=== PATIENT | male | born 1995 | race Caucasian/White ===

== ENCOUNTER 2019-04-18 02:11 | Emergency (ER) | payer OTHER ==
[~2019-04-18] VITALS: Ht 177.8 cm; Wt 63.6 kg
[2019-04-18] MEDS ORDERED: IBUPROFEN 800 MG TAB PO ONE (07:00)
[2019-04-18 07:22] VITALS: BP 127/69
--- NOTE | 2019-04-21 12:05 | REP ---
REASON: Shoulder pain. There are no priors. There examination was performed as a standard shoulder exam not an examination of the acromioclavicular joints. If an acromioclavicular joint injury is of clinical concern than an acromioclavicular joint examination should be obtained. Three views of the shoulder were performed. The acromioclavicular and glenohumeral relationships are within normal limits. There is no acute fracture or destructive osseous lesions. Electronically Signed by Freedom Pillai DO 04/21/2019 05:07 P
== END 2019-04-18 07:30 | disposition home or self-care (01) ==
LOC: M ED 02:11
DX: S43.51XA Sprain of right acromioclavicular joint, initial encounter (principal); W01.0XXA Fall on same level from slipping, tripping and stumbling without subsequent striking against object, initial encounter; Y92.830 Public park as the place of occurrence of the external cause; F17.210 Nicotine dependence, cigarettes, uncomplicated

== ENCOUNTER → 2019-11-28 | Outpatient (CLI) | payer SELFPAY ==
[~2019-11-28] MED LIST: GLUC500C37 PO; IBUP-1114 PO; LEVO500T3 PO
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
== END ==
LOC: M LRY 13:33
PROVIDERS: ATTEND Nurse Practitioner Family
DX: S60.453A Superficial foreign body of left middle finger, initial encounter (principal); T79.7XXA Traumatic subcutaneous emphysema, initial encounter; W34.00XA Accidental discharge from unspecified firearms or gun, initial encounter; Y92.9 Unspecified place or not applicable

== ENCOUNTER → 2019-11-29 | Day surgery (SDC) | payer OTHER, SELFPAY ==
[~2019-11-29] VITALS: Ht 177.8 cm; Wt 63.5 kg
[~2019-11-29] MED LIST changes: +ACETAMINOPHEN 1000MG 100ML IV BTL (OFIRMEV) (J0131 PER 10MG) As Ordered ONE; +KETOROLAC 60 MG/2 ML VIAL (J1885) As Ordered ONE; +LIDOCAINE 1% MDV 20ML VIAL As Ordered ONE; +LIDOCAINE 2% INJ 100 MG/5 ML SDV (FOR ANES.) As Ordered ONE; +LR 1,000 ML IV SCH; +MIDAZOLAM INJ 2 MG/2 ML VIAL (J2250) As Ordered ONE; +MORPHINE 2 MG/ML 1ML VIAL (J2270) IV ONE; +ONDANSETRON 4MG/2ML VIAL (J2405) As Ordered ONE; +ONDANSETRON 4MG/2ML VIAL (J2405) IV ONE; +ceFAZolin 2 GM/D5W 50 ML IV BAG (J0690 PER 500MG) As Ordered ONE; +ceFAZolin 2 GM/D5W 50 ML IV BAG (J0690 PER 500MG) IV ONE; +dexameTHASONE 4 MG/ML 1ML VIAL (J1100) As Ordered ONE; +fentaNYL 100 MCG/2 ML INJECTION (J3010) As Ordered ONE; +propofoL 500 MG/50 ML VIAL As Ordered ONE
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
[2019-11-29 08:28] LABS: BASO % 0.4 % (0.0-1.0); EOS # 0.1 10^3/uL (0.0-0.5); EOS % 2.1 % (0.0-3.0); HEMATOCRIT 47.8 % (42.0-52.0); HEMOGLOBIN 16.9 g/dl (13.5-17.5); LYMPH # 1.4 10^3/uL (1.5-5.0); LYMPH % 20.7 % (24.0-44.0); MEAN CORPUSCULAR HEMOGLOBIN 30.9 pg (27.0-33.0); MEAN CORPUSCULAR HGB CONC 35.4 g/dl (32.0-36.5); MEAN CORPUSCULAR VOLUME 87.4 fl (80.0-96.0); MONO # 0.8 10^3/uL (0.0-0.8); NEUTROPHILS # 4.4 10^3/uL (1.5-8.5); NEUTROPHILS % 64.5 % (36.0-66.0); PLATELET COUNT, AUTOMATED 185 10^3/uL (150-450); RED BLOOD COUNT 5.47 10^6/uL (4.30-6.10); WHITE BLOOD COUNT 6.8 10^3/uL (4.0-10.0)
[2019-11-29 08:40] LABS: BLOOD UREA NITROGEN 19 MG/DL (7-18); CALCIUM LEVEL 9.2 MG/DL (8.5-10.1); CARBON DIOXIDE LEVEL 27 MEQ/L (21-32); CHLORIDE LEVEL 109 MEQ/L (98-107); CREATININE FOR GFR 1.17 MG/DL (0.70-1.30); GLOMERULAR FILTRATION RATE > 60.0 (>60); GLUCOSE, FASTING 94 MG/DL (70-100); POTASSIUM SERUM 4.6 MEQ/L (3.5-5.1); SODIUM LEVEL 141 MEQ/L (136-145)
[2019-11-29 11:34] VITALS: BP 116/72
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
[2019-11-29 11:39] VITALS: BP 122/74
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
== END | disposition home or self-care (01) ==
LOC: M ED 06:33 → M SDC 06:34
PROVIDERS: ATTEND Orthopaedic Surgery
DX: S60.453A Superficial foreign body of left middle finger, initial encounter (principal); S62.653A Nondisplaced fracture of middle phalanx of left middle finger, initial encounter for closed fracture; W34.010A Accidental discharge of airgun, initial encounter; Y92.89 Other specified places as the place of occurrence of the external cause; F17.210 Nicotine dependence, cigarettes, uncomplicated
CPT/HCPCS: 20520; 73130; 73200; 80048; 85025; 88300; 96374; 96375; 99284; J0131; J0690; J1100; J1885; J2250; J2270; J2405; J3010

== ENCOUNTER 2020-02-24 20:04 | Emergency (ER) | payer OTHER ==
[~2020-02-24] VITALS: Ht 180.3 cm; Wt 66.7 kg
[~2020-02-24 20:04] MED LIST changes: -ACETAMINOPHEN 1000MG 100ML IV BTL (OFIRMEV) (J0131 PER 10MG) As Ordered ONE; -KETOROLAC 60 MG/2 ML VIAL (J1885) As Ordered ONE; -LIDOCAINE 1% MDV 20ML VIAL As Ordered ONE; -LIDOCAINE 2% INJ 100 MG/5 ML SDV (FOR ANES.) As Ordered ONE; -LR 1,000 ML IV SCH; -MIDAZOLAM INJ 2 MG/2 ML VIAL (J2250) As Ordered ONE; -MORPHINE 2 MG/ML 1ML VIAL (J2270) IV ONE; -ONDANSETRON 4MG/2ML VIAL (J2405) As Ordered ONE; -ONDANSETRON 4MG/2ML VIAL (J2405) IV ONE; -ceFAZolin 2 GM/D5W 50 ML IV BAG (J0690 PER 500MG) As Ordered ONE; -ceFAZolin 2 GM/D5W 50 ML IV BAG (J0690 PER 500MG) IV ONE; -dexameTHASONE 4 MG/ML 1ML VIAL (J1100) As Ordered ONE; -fentaNYL 100 MCG/2 ML INJECTION (J3010) As Ordered ONE; -propofoL 500 MG/50 ML VIAL As Ordered ONE
[2020-02-24] MEDS ORDERED: BACITRACIN OINTMENT 30GM TUBE TOP STA (22:04)
[2020-02-24 22:20] VITALS: BP 127/83
== END 2020-02-24 22:22 | disposition home or self-care (01) ==
LOC: M ED 20:04
DX: S01.01XA Laceration without foreign body of scalp, initial encounter (principal); W22.09XA Striking against other stationary object, initial encounter; Y99.8 Other external cause status; Y93.89 Activity, other specified; Y92.89 Other specified places as the place of occurrence of the external cause; F17.200 Nicotine dependence, unspecified, uncomplicated